=== PATIENT | male | born 1990 | race Caucasian/White ===

== ENCOUNTER 2024-11-10 19:26 | Observation (INO) ==
--- NOTE | 2024-11-10 20:04 | Emergency Department Note ---
Impression & Plan Abdominal pain, Leukocytosis, Intussusception, Chest pain, Episodic lightheadedness ED Provider Note NAME: RAJ ALBERTO Jr AGE: 34 SEX: M : 1990 ARRIVES VIA: Walk-In INFORMANT: Patient ED PROVIDER(S): Richard eLggett DO CHIEF COMPLAINT: Weakness HPI: Patient is a 34-year-old male who presents ER for multiple complaints. His notes that he was sent in here for admission and further evaluation. They have been seen at [facility] multiple times since August. He has had diffuse myalgias and arthralgias for the past 4 years. He has been worked up at [facility] and was initially syphilis positive and a confirmatory testing was negative per family. His Moisés-Arriola was positive. He has episodes where he is able to walk and all of a sudden becomes weak and will go to the ground. He has had brain or MRIs which were negative. He has lost 20 pounds over the past 2 months. He admits to persistent belly pain for the past 7 days. He also has chest pain which comes and goes with eating and standing up. Denies any dysuria, urgency, or frequency. Also admits to lightheadedness and dizziness intermittently. Does have lower back pain. Denies any IV drug use or any other drug use other than marijuana. ADDITIONAL HISTORY OBTAINED: Per HPI Chronic Medical/Social Conditions Affecting Care: Per HPI PAST MEDICAL HISTORY:See Below PAST SURGICAL HISTORY:See Below FAMILY HISTORY:See Below SOCIAL HISTORY:See Below HOME MEDICATIONS:See Below ALLERGIES:See Below VITALS:See Below PHYSICAL EXAMINATION: GENERAL: Sitting up in bed, alert, well appearing, well nourished, no distress, non-toxic EYE EXAM: normal conjunctiva. PERRL and EOM's intact. OROPHARYNX: no exudate, no erythema, lips, buccal mucosa, and tongue normal and mucous membranes are moist NECK: supple, no nuchal rigidity, no adenopathy, non-tender LUNGS: Clear to auscultation. Normal chest wall mechanics HEART: no murmurs, S1 normal and S2 normal ABDOMEN: abdomen soft, non-tender, normo-active bowel sounds, no masses, no rebound or guarding. BACK: Back is symmetrical on inspection and there is no deformity, no midline tenderness, no CVA tenderness. SKIN: no rashes and no bruising UPPER EXTREMITIES: upper extremities are grossly normal. LOWER EXTREMITIES: No pitting edema. NEURO EXAM: Normal sensorium, cranial nerves II-XII intact, normal speech, no weakness of arms, no weakness of legs. No drift. Finger to nose intact. Gross sensation intact. MEDICAL DECISION MAKING: Patient is a 34-year-old male who presents ER for multiple complaints. He was referred in for admission and possible MRI and LP. IV was established and blood work was obtained. Labs show mild leukocytosis of 12.5. No significant anemia. BMP along with LFTs bilirubin was unremarkable. Mag was normal. Troponin was negative with chest pain does not appear to be consistent with ACS. Lipase was mildly elevated at 170. CT does not show pancreatitis but did show intussusception. This was discussed with general surgery and they did evaluate him at bedside. 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 UA was clean. Syphilis antibody is is positive with the RPR and FTAABS pending. Babesiosis and anaplasmosis smears were ordered and negative. Lyme screening was positive and patient was updated in regards to this. The IgM and IgG did eventually come back and were negative. Remainder of tickborne studies are pending. Patient was covered with Rocephin. Patient was given IV fluids. He was discussed with general surgery and the hospitalist. He was admitted for further workup. Consults/Care Managements Discussions: Per [facility] Triage Nursing notes reviewed. Limited review of prior medical records performed Vital Signs: reviewed and remarkable for no significant abnormalities Differential diagnosis: Differential diagnoses includes but is not limited to gastritis, peptic ulcer disease, GERD, gallbladder disease, pancreatitis, small bowel obstruction, appendicitis, diverticulitis, hernia, urinary tract infection, torsion, [/ectopic (if female)], perforation, trauma, infectious. ER treatment provided: See below Diagnostics interpreted by me include EKG and cardiac monitoring as listed below: -Cardiac Monitoring: An order was placed for continuous cardiac monitoring. The monitor shows a rate of 90 with sinus rhythm. -ECG: Sinus rhythm rate of 72 Normal axis No PVCs QTc 396 -Laboratory studies:Interpreted by me as stated above in MDM and shown below. Imaging studies: Xrays: As interpreted by me: Portable AP upright 1 view the chest shows no focal Lutrate CTs show: none Procedures:none Critical Care: None Past Med/Surg History Problem List (Updated 11/11/24 @ 00:31 by Richard Leggett DO) Episodic lightheadedness (Acute) Chest pain (Acute) Intussusception (Acute) Leukocytosis (Acute) Abdominal pain (Acute) Social History Smoking Status: Current every day smoker Tobacco Type: Cigarettes Preferred Language: Cape Verdean Feels Safe at Home: Yes Allergies Allergies Allergy/AdvReac Type Severity Reaction Status Date / Time aripiprazole [From Abilify] AdvReac Severe Anxiety Verified 11/10/24 22:42 clonazepam [From Klonopin] AdvReac Severe Anxiety Verified 11/10/24 22:42 quetiapine [From Seroquel] AdvReac Severe Anxiety Verified 11/10/24 22:42 Home Meds Home Medications Medication Instructions Recorded Confirmed hydroxyzine HCl 10 mg tablet 10 mg PO Q6 PRN Anxiety 11/10/24 11/10/24 ibuprofen 200 mg tablet 400 mg PO Q6H PRN Fever Or Pain 11/10/24 11/10/24 methylprednisolone 4 mg tablets in 4 mg PO UD 11/10/24 11/10/24 a dose pack Results & Data (ED) Vital Signs Vital Signs - 24 hr 11/10/24 19:27 11/10/24 20:03 11/10/24 20:03 Temperature 36.7 C Temperature Source Temporal Artery Scan Pulse Rate 92 H Pulse Rate [Right Finger] 78 Pulse Rhythm Regular Pulse Strength Normal Respiratory Rate 18 18 Respiratory Effort / Characteristics Non-Labored Spontaneous Respiratory Depth Normal Normal Respiratory Pattern Regular Blood Pressure 120/81 Blood Pressure [Right Arm] 121/60 Blood Pressure Mean 94 Blood Pressure Mean [Right Arm] 80 Blood Pressure Position Sitting Pulse Oximetry 100 99 99 Oxygen Delivery Method Room Air Room Air Room Air Sepsis Recent Fever Within 48 Hours No Sepsis New/Unexplained Change in Mental Status No Sepsis Action Taken by Nursing No Action Required 11/10/24 20:06 11/10/24 21:04 11/10/24 21:11 Temperature Temperature Source Pulse Rate 76 56 L Pulse Rate [Right Finger] Pulse Rhythm Regular Pulse Strength Respiratory Rate 16 16 Respiratory Effort / Characteristics Respiratory Depth Normal Respiratory Pattern Blood Pressure Blood Pressure [Right Arm] 108/76 Blood Pressure Mean Blood Pressure Mean [Right Arm] 86 Blood Pressure Position Pulse Oximetry 99 98 Oxygen Delivery Method Room Air Room Air Sepsis Recent Fever Within 48 Hours Sepsis New/Unexplained Change in Mental Status Sepsis Action Taken by Nursing 11/10/24 22:35 Temperature Temperature Source Pulse Rate Pulse Rate [Right Finger] 53 L Pulse Rhythm Pulse Strength Respiratory Rate 16 Respiratory Effort / Characteristics Respiratory Depth Normal Respiratory Pattern Blood Pressure Blood Pressure [Right Arm] 110/72 Blood Pressure Mean Blood Pressure Mean [Right Arm] 84 Blood Pressure Position Pulse Oximetry 97 Oxygen Delivery Method Room Air Sepsis Recent Fever Within 48 Hours Sepsis New/Unexplained Change in Mental Status Sepsis Action Taken by Nursing Laboratory Data 11/10/24 20:05 11/10/24 20:05 Lab Results 11/10/24 11/10/24 Range/Units 20:05 20:35 WBC 12.51 H (4.8-10.8) K/ul RBC 4.72 (4.70-6.10) M/uL Hgb 14.4 (14.0-18.0) g/dl Hct 41.4 L (42.0-52.0) % MCV 87.7 (80.0-100.0) fL MCH 30.5 (25.0-34.0) pg MCHC 34.8 (32.0-36.0) g/dL RDW Std Deviation 41.8 (36.4-46.3) fL RDW Coeff of Soni 13.0 (11.5-14.5) % Plt Count 174 (130-400) K/uL MPV 11.5 (9.4-12.4) fL Immature Gran % (Auto) 0.5 % Neut % (Auto) 86.9 % Lymph % (Auto) 9.0 % Louisa % (Auto) 3.1 % Eos % (Auto) 0.1 % Baso % (Auto) 0.4 % Neut # (Auto) 10.88 H (1.40-6.50) K/uL Lymph # (Auto) 1.12 L (1.20-3.40) K/uL Louisa # (Auto) 0.39 (0.11-0.59) K/uL Eos # (Auto) 0.01 (0.00-0.50) K/uL Baso # (Auto) 0.05 (0.00-0.20) K/uL Immature Gran # (Auto) 0.06 (0.01-0.20) K/uL APTT 27 (21-31) Seconds PTT Ratio 1.0 Sodium 139 (136-145) mmol/L Potassium 4.2 (3.5-5.1) mmol/L Chloride 106 (98-107) mmol/L Carbon Dioxide 26 (21-32) mmol/L Anion Gap 7 (3-11) BUN 23 (6-23) mg/dl Creatinine 0.81 (0.6-1.4) mg/dl Est Cr Clr Drug Dosing 108.4 ml/min eGFR 117.92 BUN/Creatinine Ratio 28.4 H (10-20) Glucose 151 H (70-99(Fasting)) mg/dl Calcium 9.5 (8.6-10.3) mg/dl Magnesium 2.0 (1.7-2.4) mg/dl Total Bilirubin 0.3 (0.2-1.0) mg/dl AST 16 (13-39) U/L ALT 13 (7-52) U/L Alkaline Phosphatase 56 (34-104) U/L Troponin I High Sens 2.4 (0-20) pg/ml Total Protein 7.1 (6.0-8.3) gm/dl Albumin 4.4 (3.4-5.0) gm/dl Globulin 2.7 (2.5-4.0) gm/dl Albumin/Globulin Ratio 1.6 (0.9-2) Lipase 174 H (11-82) U/L TSH 0.338 (0.300-4.500) uIu/ml Urine Color Yellow Urine Appearance Clear (Clear) Urine pH 6.5 (4.5-7.5) Ur Specific [place] 1.021 (1.000-1.030) Urine Protein Negative (Negative) Urine Glucose (UA) Negative (Negative) Urine Ketones Negative (Negative) Urine Blood Negative (Negative) Urine Nitrite Negative (Negative) Urine Bilirubin Negative (Negative) Urine Urobilinogen Negative (Negative) Ur Leukocyte Esterase Negative (Negative) Urine Comment Treponema pallidum Ab Positive H (Negative) Anaplasma Smear See Comment Babesia Smear See Comment Lyme Disease Screen Positive H (Negative) Lyme Tier 2 IgG Confirm Negative (Negative) Lyme Tier 2 IgM Confirm Negative (Negative) Administered Medications Discontinued Medications Sodium Chloride (Nss) 1,000 mls @ 999 mls/hr IV .Q1H1M ONE Stop: 11/10/24 20:55 Last Infusion: 11/10/24 22:39 Dose: Infused Documented By: Admin: 11/10/24 20:09 Dose: 999 mls/hr Documented By: QUOC Ceftriaxone Sodium (Rocephin) 2,000 mg in 50 mls @ 100 mls/hr IV NOW STA Stop: 11/10/24 22:56 Last Infusion: 11/10/24 23:23 Dose: Infused Documented By: Admin: 11/10/24 22:44 Dose: 100 mls/hr Documented By: ANASTACIA Ioversol (Optiray 320 100ml) 93 ml IV ONCE ONE Stop: 11/10/24 20:52 Last Admin: 11/10/24 20:52 Dose: 93 ml Documented By: JESUSITA Ioversol (Optiray 320 125ml) 125 ml IV ONCE ONE Stop: 11/10/24 23:06 Last Admin: 11/10/24 23:06 Dose: 118 ml Documented By: ARTEMIO Imaging Data Radiologist's Impression: Abdomen/Pelvis CT 11/10/24 19:54 CR Exam(s): CT ABDOMEN + PELVIS With Contrast IV Amt: 93 cc opti 320 EXAM: CT Abdomen and Pelvis With Intravenous Contrast CLINICAL HISTORY: Reason for exam: abd pain. TECHNIQUE: Axial computed tomography images of the abdomen and pelvis with intravenous contrast. CTDI is 44.6 mGy and DLP is 1101.88 mGy-cm. Automated exposure control was utilized for the study. A dose lowering technique was utilized adhering to the principles of ALARA. CONTRAST: Patient received 93 cc opti 320 of IV contrast COMPARISON: No relevant prior studies available. FINDINGS: ABDOMEN: Liver: Unremarkable. Gallbladder and bile ducts: Unremarkable. Pancreas: Unremarkable. Spleen: Unremarkable. Adrenals: Unremarkable. Kidneys and ureters: Unremarkable. No obstructing stones. No hydronephrosis. Stomach and bowel: There is a small bowel-small bowel intussusception within the pelvis. No bowel obstruction. Most commonly this is incidental and self reduces. However can also be seen in the setting of enteritis or if there is a lead point. PELVIS: Appendix: No findings to suggest acute appendicitis. Bladder: Unremarkable. Reproductive: Unremarkable as visualized. ABDOMEN and PELVIS: Intraperitoneal space: Unremarkable. No free air. No significant fluid collection. Bones/joints: No acute fracture. Soft tissues: Unremarkable. Vasculature: Filling defects within the superior mesenteric veins (series 5 image 54). Indeterminate whether this represents flow related artifact or DVT. Lymph nodes: Unremarkable. IMPRESSION: 1. There is a small bowel-small bowel intussusception within the pelvis. No bowel obstruction. Most commonly this is incidental and self reduces. However can also be seen in the setting of enteritis or if there is a lead point. 2. Filling defects within the superior mesenteric veins (series 5 image 54). Indeterminate whether this represents flow related artifact or DVT. If the patient can have more contrast findings could be further evaluated with a repeat study and a delayed phase to evaluate for complete filling of these veins with contrast. Communications: Call Doctor Above results Electronically signed by: Brady Briseno MD 11/10/24 22:15 PM Chest X-Ray 11/10/24 19:54 Exam(s): XR CXR 1 VIEW EXAM: XR Chest, 1 View CLINICAL HISTORY: Reason for exam: Chest pain, nonspecific. TECHNIQUE: Frontal view of the chest. COMPARISON: None FINDINGS: Hardware: None. Lungs/pleura: Normal. No focal consolidation. No pleural effusion or pneumothorax. Heart/mediastinum: Normal. No cardiomegaly. Soft tissues: Unremarkable. Bones: No acute fracture. Upper abdomen: Normal. IMPRESSION: No acute disease identified. Electronically signed by: Nikole Garvey M.D. 11/10/24 21:[address] 11/10/24 19:54 Exam(s): CT HEAD Without Contrast EXAM: CT Head Without Intravenous Contrast CLINICAL HISTORY: Reason for exam: fall weakness. TECHNIQUE: Axial computed tomography images of the head/brain without intravenous contrast. CTDI is 6 35.51 mGy and DLP is 624.41 mGy-cm. Automated exposure control was utilized for the study. A dose lowering technique was utilized adhering to the principles of ALARA. COMPARISON: No relevant prior studies available. FINDINGS: Brain: No hemorrhage, extra-axial fluid collection, mass effect, or edema. Ventricles: Unremarkable. Bones/joints: Unremarkable. No fracture. Soft tissues: Unremarkable. Sinuses: No acute sinusitis. Mastoid air cells: Unremarkable as visualized. IMPRESSION: 1. No acute intracranial abnormality. Electronically signed by: Brady Briseno MD 11/10/24 22:[address] 11/10/24 19:54 Exam(s): CT L SPINE With Contrast IV Amt: 93 cc opti 320 EXAM: CT Lumbar Spine With Intravenous Contrast CLINICAL HISTORY: Reason for exam: lower back pain. TECHNIQUE: Axial computed tomography images of the lumbar spine with intravenous contrast. CTDI is 44.6 mGy and DLP is 1101.88 mGy-cm. Automated exposure control was utilized for the study. A dose lowering technique was utilized adhering to the principles of ALARA. CONTRAST: Patient received 93 cc opti 320 of IV contrast COMPARISON: No relevant prior studies available. FINDINGS: Vertebrae: No fracture or malalignment. Discs/spinal canal/neural foramina: Mild degenerative disc disease at L4-5. No canal stenosis. Severe right foraminal stenosis at this level. Soft tissues: Unremarkable. IMPRESSION: 1. No fracture or malalignment. 2. Degenerative spondylosis at L4-5. Severe right foraminal stenosis at this level. Electronically signed by: Brady Briseno MD 11/10/24 22:17 PM Discharge Plan Visit Data Chief Complaint: Weakness Stated Complaint: WEAKNESS ED Provider: Richard Leggett Discharge Problem: Abdominal pain, Leukocytosis, Intussusception, Chest pain, Episodic lightheadedness Condition: Fair Forms Stand Alone Forms: [employer]ers[employer] Prescriptions Prescriptions: No Action methylprednisolone 4 mg tablets,dose pack 4 mg PO UD hydroxyzine HCl 10 mg tablet 10 mg PO Q6 PRN (Reason: Anxiety) ibuprofen 200 mg Tablet 400 mg PO Q6H PRN (Reason: Fever Or Pain) Referrals Referrals: PCP,NO [Primary Care Provider] - Discharge Problem: Abdominal pain Qualifiers: Abdominal location: unspecified location Qualified Code(s): R10.9 - Unspecified abdominal pain Leukocytosis Qualifiers: Leukocytosis type: unspecified Qualified Code(s): D72.829 - Elevated white blood cell count, unspecified Chest pain Qualifiers: Chest pain type: unspecified Qualified Code(s): R07.9 - Chest pain, unspecified
[2024-11-10] MEDS: SODIUM CHLORIDE 0.9% 1,000 ML IV ONE (20:09)
[2024-11-10 20:23] LABS: Hematocrit (blood only) 41.4 % (42.0-52.0); Hemoglobin 14.4 g/dl (14.0-18.0); Immature Granulocytes # (auto) 0.06 K/uL (0.01-0.20); Immature Granulocytes % (auto) 0.5 %; Mean Corpuscular Hemoglobin 30.5 pg (25.0-34.0); Mean Corpuscular Volume 87.7 fL (80.0-100.0); Platelet Count 174 K/uL (130-400); RDW Standard Deviation 41.8 fL (36.4-46.3); Red Blood Count 4.72 M/uL (4.70-6.10); White Blood Count 12.51 K/ul (4.8-10.8)
[2024-11-10 20:40] LABS: Alanine Aminotransferase 13.0 U/L (7-52); Albumin Globulin Ratio 1.6 (0.9-2); Alkaline Phosphatase 56.0 U/L (34-104); Anion Gap 7.0 (3-11); Bilirubin,Total 0.3 mg/dl (0.2-1.0); Blood Urea Nitrogen 23.0 mg/dl (6-23); Calcium 9.5 mg/dl (8.6-10.3); Carbon Dioxide 26.0 mmol/L (21-32); Chloride 106.0 mmol/L (98-107); Creatinine Clr Calc Pharmacy 108.4 ml/min; Globulin 2.7 gm/dl (2.5-4.0); Glucose 151.0 mg/dl (70-99(Fasting)); Lipase 174.0 U/L (11-82); Potassium 4.2 mmol/L (3.5-5.1); Sodium 139.0 mmol/L (136-145); Total Protein 7.1 gm/dl (6.0-8.3)
[2024-11-10 20:50] LABS: Appearance Urine Clear (Clear); Glucose Urine UA Negative (Negative)
[2024-11-10] MEDS: OPTIRAY 320 100ml IV ONE (20:52)
--- NOTE | 2024-11-10 21:04 | XRay Report ---
Exam(s): XR CXR 1 VIEW EXAM: XR Chest, 1 View CLINICAL HISTORY: Reason for exam: Chest pain, nonspecific. TECHNIQUE: Frontal view of the chest. COMPARISON: None FINDINGS: Hardware: None. Lungs/pleura: Normal. No focal consolidation. No pleural effusion or pneumothorax. Heart/mediastinum: Normal. No cardiomegaly. Soft tissues: Unremarkable. Bones: No acute fracture. Upper abdomen: Normal. IMPRESSION: No acute disease identified. Electronically signed by: Nikole Garvey M.D. 11/10/24 21:03 PM
[2024-11-10 21:32] LABS: Lyme Screen Rflx Confirmation Positive (Negative)
--- NOTE | 2024-11-10 22:09 | CT Scan Report ---
Exam(s): CT HEAD Without Contrast EXAM: CT Head Without Intravenous Contrast CLINICAL HISTORY: Reason for exam: fall weakness. TECHNIQUE: Axial computed tomography images of the head/brain without intravenous contrast. CTDI is 6 35.51 mGy and DLP is 624.41 mGy-cm. Automated exposure control was utilized for the study. A dose lowering technique was utilized adhering to the principles of ALARA. COMPARISON: No relevant prior studies available. FINDINGS: Brain: No hemorrhage, extra-axial fluid collection, mass effect, or edema. Ventricles: Unremarkable. Bones/joints: Unremarkable. No fracture. Soft tissues: Unremarkable. Sinuses: No acute sinusitis. Mastoid air cells: Unremarkable as visualized. IMPRESSION: 1. No acute intracranial abnormality. Electronically signed by: Brady Briseno MD 11/10/24 22:08 PM
--- NOTE | 2024-11-10 22:16 | CT Scan Report ---
Exam(s): CT ABDOMEN + PELVIS With Contrast IV Amt: 93 cc opti 320 EXAM: CT Abdomen and Pelvis With Intravenous Contrast CLINICAL HISTORY: Reason for exam: abd pain. TECHNIQUE: Axial computed tomography images of the abdomen and pelvis with intravenous contrast. CTDI is 44.6 mGy and DLP is 1101.88 mGy-cm. Automated exposure control was utilized for the study. A dose lowering technique was utilized adhering to the principles of ALARA. CONTRAST: Patient received 93 cc opti 320 of IV contrast COMPARISON: No relevant prior studies available. FINDINGS: ABDOMEN: Liver: Unremarkable. Gallbladder and bile ducts: Unremarkable. Pancreas: Unremarkable. Spleen: Unremarkable. Adrenals: Unremarkable. Kidneys and ureters: Unremarkable. No obstructing stones. No hydronephrosis. Stomach and bowel: There is a small bowel-small bowel intussusception within the pelvis. No bowel obstruction. Most commonly this is incidental and self reduces. However can also be seen in the setting of enteritis or if there is a lead point. PELVIS: Appendix: No findings to suggest acute appendicitis. Bladder: Unremarkable. Reproductive: Unremarkable as visualized. ABDOMEN and PELVIS: Intraperitoneal space: Unremarkable. No free air. No significant fluid collection. Bones/joints: No acute fracture. Soft tissues: Unremarkable. Vasculature: Filling defects within the superior mesenteric veins (series 5 image 54). Indeterminate whether this represents flow related artifact or DVT. Lymph nodes: Unremarkable. IMPRESSION: 1. There is a small bowel-small bowel intussusception within the pelvis. No bowel obstruction. Most commonly this is incidental and self reduces. However can also be seen in the setting of enteritis or if there is a lead point. 2. Filling defects within the superior mesenteric veins (series 5 image 54). Indeterminate whether this represents flow related artifact or DVT. If the patient can have more contrast findings could be further evaluated with a repeat study and a delayed phase to evaluate for complete filling of these veins with contrast. Communications: Call Doctor Above results Electronically signed by: Brady Briseno MD 11/10/24 22:15 PM
--- NOTE | 2024-11-10 22:19 | CT Scan Report ---
Exam(s): CT L SPINE With Contrast IV Amt: 93 cc opti 320 EXAM: CT Lumbar Spine With Intravenous Contrast CLINICAL HISTORY: Reason for exam: lower back pain. TECHNIQUE: Axial computed tomography images of the lumbar spine with intravenous contrast. CTDI is 44.6 mGy and DLP is 1101.88 mGy-cm. Automated exposure control was utilized for the study. A dose lowering technique was utilized adhering to the principles of ALARA. CONTRAST: Patient received 93 cc opti 320 of IV contrast COMPARISON: No relevant prior studies available. FINDINGS: Vertebrae: No fracture or malalignment. Discs/spinal canal/neural foramina: Mild degenerative disc disease at L4-5. No canal stenosis. Severe right foraminal stenosis at this level. Soft tissues: Unremarkable. IMPRESSION: 1. No fracture or malalignment. 2. Degenerative spondylosis at L4-5. Severe right foraminal stenosis at this level. Electronically signed by: Brady Briseno MD 11/10/24 22:17 PM
[2024-11-10] MEDS: cefTRIAXone SODIUM 2,000 MG/50 ML BAG IV STA (22:44)
[2024-11-10 23:02] LABS: Lyme Ab IgG 2nd Tier Confirm Negative (Negative); Lyme Ab IgM 2nd Tier Confirm Negative (Negative)
[2024-11-10] MEDS: OPTIRAY 320 125ml IV ONE (23:06)
--- NOTE | 2024-11-10 23:41 | History & Physical Report ---
Date of Service November 10, 2024 History of Present Illness Primary Care Provider: NO PCP Allergies Allergy/AdvReac Type Severity Reaction Status Date / Time aripiprazole [From Abilify] AdvReac Severe Anxiety Verified 11/10/24 22:42 clonazepam [From Klonopin] AdvReac Severe Anxiety Verified 11/10/24 22:42 quetiapine [From Seroquel] AdvReac Severe Anxiety Verified 11/10/24 22:42 Home Medications Medication Instructions Recorded Confirmed Type hydroxyzine HCl 10 mg tablet 10 mg PO Q6 PRN Anxiety 11/10/24 11/10/24 History ibuprofen 200 mg tablet 400 mg PO Q6H PRN Fever Or Pain 11/10/24 11/10/24 History methylprednisolone 4 mg tablets in 4 mg PO UD 11/10/24 11/10/24 History a dose pack Past Med/Surg History Problem List Social History Smoking Status: Current every day smoker Tobacco Type: Cigarettes Preferred Language: Niuean Feels Safe at Home: Yes Results & Data Results & Data Vital Signs (Past 12 Hours) Vital Signs Temp Pulse Pulse Resp BP BP Pulse Ox 11/10/24 22:35 53 L 16 110/72 97 11/10/24 21:11 56 L 11/10/24 21:04 16 108/76 98 11/10/24 20:06 76 16 99 11/10/24 20:03 78 18 121/60 99 11/10/24 20:03 99 11/10/24 19:27 36.7 C 92 H 18 120/81 100 O2 Del Method 11/10/24 22:35 Room Air 11/10/24 21:11 11/10/24 21:04 Room Air 11/10/24 20:06 Room Air 11/10/24 20:03 Room Air 11/10/24 20:03 Room Air 11/10/24 19:27 Room Air Laboratory Results Laboratory Results WBC 12.51 K/ul (4.8-10.8) H 11/10/24 20:05 RBC 4.72 M/uL (4.70-6.10) 11/10/24 20:05 Hgb 14.4 g/dl (14.0-18.0) 11/10/24 20:05 Hct 41.4 % (42.0-52.0) L 11/10/24 20:05 MCV 87.7 fL (80.0-100.0) 11/10/24 20:05 MCH 30.5 pg (25.0-34.0) 11/10/24 20:05 MCHC 34.8 g/dL (32.0-36.0) 11/10/24 20:05 RDW Std Deviation 41.8 fL (36.4-46.3) 11/10/24 20:05 RDW Coeff of Soni 13.0 % (11.5-14.5) 11/10/24 20:05 Plt Count 174 K/uL (130-400) 11/10/24 20:05 MPV 11.5 fL (9.4-12.4) 11/10/24 20:05 Immature Gran % (Auto) 0.5 % 11/10/24 20:05 Neut % (Auto) 86.9 % 11/10/24 20:05 Lymph % (Auto) 9.0 % 11/10/24 20:05 [place] % (Auto) 3.1 % 11/10/24 20:05 Eos % (Auto) 0.1 % 11/10/24 20:05 Baso % (Auto) 0.4 % 11/10/24 20:05 Neut # (Auto) 10.88 K/uL (1.40-6.50) H 11/10/24 20:05 Lymph # (Auto) 1.12 K/uL (1.20-3.40) L 11/10/24 20:05 [place] # (Auto) 0.39 K/uL (0.11-0.59) 11/10/24 20:05 Eos # (Auto) 0.01 K/uL (0.00-0.50) 11/10/24 20:05 Baso # (Auto) 0.05 K/uL (0.00-0.20) 11/10/24 20:05 Immature Gran # (Auto) 0.06 K/uL (0.01-0.20) 11/10/24 20:05 Sodium 139 mmol/L (136-145) 11/10/24 20:05 Potassium 4.2 mmol/L (3.5-5.1) 11/10/24 20:05 Chloride 106 mmol/L (98-107) 11/10/24 20:05 Carbon Dioxide 26 mmol/L (21-32) 11/10/24 20:05 Anion Gap 7 (3-11) 11/10/24 20:05 BUN 23 mg/dl (6-23) 11/10/24 20:05 Creatinine 0.81 mg/dl (0.6-1.4) 11/10/24 20:05 Est Cr Clr Drug Dosing 108.4 ml/min 11/10/24 20:05 eGFR 117.92 11/10/24 20:05 BUN/Creatinine Ratio 28.4 (10-20) H 11/10/24 20:05 Glucose 151 mg/dl (70-99(Fasting)) H 11/10/24 20:05 Calcium 9.5 mg/dl (8.6-10.3) 11/10/24 20:05 Total Bilirubin 0.3 mg/dl (0.2-1.0) 11/10/24 20:05 AST 16 U/L (13-39) 11/10/24 20:05 ALT 13 U/L (7-52) 11/10/24 20:05 Alkaline Phosphatase 56 U/L (34-104) 11/10/24 20:05 Troponin I High Sens 2.4 pg/ml (0-20) 11/10/24 20:05 Total Protein 7.1 gm/dl (6.0-8.3) 11/10/24 20:05 Albumin 4.4 gm/dl (3.4-5.0) 11/10/24 20:05 Globulin 2.7 gm/dl (2.5-4.0) 11/10/24 20:05 Albumin/Globulin Ratio 1.6 (0.9-2) 11/10/24 20:05 Lipase 174 U/L (11-82) H 11/10/24 20:05 Urine Color Yellow 11/10/24 20:35 Urine Appearance Clear (Clear) 11/10/24: Urine pH 6.5 (4.5-7.5) 11/10/24: Ur Specific [place] 1.021 (1.000-1.030) 11/10/24 20:35 Urine Protein Negative (Negative) 11/10/24: Urine Glucose (UA) Negative (Negative) 11/10/24: Urine Ketones Negative (Negative) 11/10/24 20:35 Urine Blood Negative (Negative) 11/10/24 20:35 Urine Nitrite Negative (Negative) 11/10/24 20:35 Urine Bilirubin Negative (Negative) 11/10/24 20:35 Urine Urobilinogen Negative (Negative) 11/10/24 20:35 Ur Leukocyte Esterase Negative (Negative) 11/10/24 20:35 Urine Comment 11/10/24 20:35 Treponema pallidum Ab Positive (Negative) H 11/10/24 20:05 Anaplasma Smear See Comment 11/10/24 20:05 Babesia Smear See Comment 11/10/24 20:05 Lyme Disease Screen Positive (Negative) H 11/10/24 20:05 Lyme Tier 2 IgG Confirm Negative (Negative) 11/10/24 20:05 Lyme Tier 2 IgM Confirm Negative (Negative) 11/10/24 20:05 Impressions Abdomen/Pelvis CT 11/10/24 19:54 CR Exam(s): CT ABDOMEN + PELVIS With Contrast IV Amt: 93 cc opti 320 EXAM: CT Abdomen and Pelvis With Intravenous Contrast CLINICAL HISTORY: Reason for exam: abd pain. TECHNIQUE: Axial computed tomography images of the abdomen and pelvis with intravenous contrast. CTDI is 44.6 mGy and DLP is 1101.88 mGy-cm. Automated exposure control was utilized for the study. A dose lowering technique was utilized adhering to the principles of ALARA. CONTRAST: Patient received 93 cc opti 320 of IV contrast COMPARISON: No relevant prior studies available. FINDINGS: ABDOMEN: Liver: Unremarkable. Gallbladder and bile ducts: Unremarkable. Pancreas: Unremarkable. Spleen: Unremarkable. Adrenals: Unremarkable. Kidneys and ureters: Unremarkable. No obstructing stones. No hydronephrosis. Stomach and bowel: There is a small bowel-small bowel intussusception within the pelvis. No bowel obstruction. Most commonly this is incidental and self reduces. However can also be seen in the setting of enteritis or if there is a lead point. PELVIS: Appendix: No findings to suggest acute appendicitis. Bladder: Unremarkable. Reproductive: Unremarkable as visualized. ABDOMEN and PELVIS: Intraperitoneal space: Unremarkable. No free air. No significant fluid collection. Bones/joints: No acute fracture. Soft tissues: Unremarkable. Vasculature: Filling defects within the superior mesenteric veins (series 5 image 54). Indeterminate whether this represents flow related artifact or DVT. Lymph nodes: Unremarkable. IMPRESSION: 1. There is a small bowel-small bowel intussusception within the pelvis. No bowel obstruction. Most commonly this is incidental and self reduces. However can also be seen in the setting of enteritis or if there is a lead point. 2. Filling defects within the superior mesenteric veins (series 5 image 54). Indeterminate whether this represents flow related artifact or DVT. If the patient can have more contrast findings could be further evaluated with a repeat study and a delayed phase to evaluate for complete filling of these veins with contrast. Communications: Call Doctor Above results Electronically signed by: Brady Briseno MD 11/10/24 22:15 PM Chest X-Ray 11/10/24 19:54 Exam(s): XR CXR 1 VIEW EXAM: XR Chest, 1 View CLINICAL HISTORY: Reason for exam: Chest pain, nonspecific. TECHNIQUE: Frontal view of the chest. COMPARISON: None FINDINGS: Hardware: None. Lungs/pleura: Normal. No focal consolidation. No pleural effusion or pneumothorax. Heart/mediastinum: Normal. No cardiomegaly. Soft tissues: Unremarkable. Bones: No acute fracture. Upper abdomen: Normal. IMPRESSION: No acute disease identified. Electronically signed by: Nikole Garvey M.D. 11/10/24 21:[address] 11/10/24 19:54 Exam(s): CT HEAD Without Contrast EXAM: CT Head Without Intravenous Contrast CLINICAL HISTORY: Reason for exam: fall weakness. TECHNIQUE: Axial computed tomography images of the head/brain without intravenous contrast. CTDI is 6 35.51 mGy and DLP is 624.41 mGy-cm. Automated exposure control was utilized for the study. A dose lowering technique was utilized adhering to the principles of ALARA. COMPARISON: No relevant prior studies available. FINDINGS: Brain: No hemorrhage, extra-axial fluid collection, mass effect, or edema. Ventricles: Unremarkable. Bones/joints: Unremarkable. No fracture. Soft tissues: Unremarkable. Sinuses: No acute sinusitis. Mastoid air cells: Unremarkable as visualized. IMPRESSION: 1. No acute intracranial abnormality. Electronically signed by: Brady Briseno MD 11/10/24 22:[address] 11/10/24 19:54 Exam(s): CT L SPINE With Contrast IV Amt: 93 cc opti 320 EXAM: CT Lumbar Spine With Intravenous Contrast CLINICAL HISTORY: Reason for exam: lower back pain. TECHNIQUE: Axial computed tomography images of the lumbar spine with intravenous contrast. CTDI is 44.6 mGy and DLP is 1101.88 mGy-cm. Automated exposure control was utilized for the study. A dose lowering technique was utilized adhering to the principles of ALARA. CONTRAST: Patient received 93 cc opti 320 of IV contrast COMPARISON: No relevant prior studies available. FINDINGS: Vertebrae: No fracture or malalignment. Discs/spinal canal/neural foramina: Mild degenerative disc disease at L4-5. No canal stenosis. Severe right foraminal stenosis at this level. Soft tissues: Unremarkable. IMPRESSION: 1. No fracture or malalignment. 2. Degenerative spondylosis at L4-5. Severe right foraminal stenosis at this level. Electronically signed by: Brady Briseno MD 11/10/24 22:17 PM
[2024-11-10 23:47] LABS: Partial Thromboplastin Time 27 Seconds (21-31)
[2024-11-10 23:48] LABS: Magnesium 2.0 mg/dl (1.7-2.4)
[2024-11-11 00:03] LABS: Thyroid Stimulating Hormone 0.338 uIu/ml (0.300-4.500)
--- NOTE | 2024-11-11 00:53 | History & Physical Report ---
Date of Service November 11, 2024 Assessment & Plan (1) SOB (shortness of breath): Plan: Assessment and plan below following discussion of case with ED provider and reviewing patient history/pertinent normal/abnormal diagnostic test results. Shortness of breath Rule out PE Bowel intussusception on imaging Possible autoimmune disease, patient following with [facility] (Dr. Min) Worsening headache symptoms rule out brain tumor History false positive syphilis test Past history Lyme disease status post Rx, negative IgG and IgM on today's blood work Steroid-induced hyperglycemia ro DM past tobacco abuse Admit to med/tele Check D-dimer CT chest angio study to rule out PE if D-dimer abnormal (Will need IV dye washout period following preliminary studies done at the ER.) General Surgery consult re: bowel intussusception (Patient already seen by provider at the ER.) N.p.o. 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 Check hemoglobin A1c DVT prophylaxis. Edifilmnox subcu Full code Text document was generated using [employer] voice recognition software. It may contain grammatical or spelling errors. Kindly contact undersigned for clarification of any documentation item in question. History of Present Illness Chief Complaint: Abdominal pain, chest pain, worsening headaches, achiness Primary Care Provider: NO PCP History obtained from patient, family, and records. Medical history significant for anxiety disorder, past tobacco abuse. Patient has not been well the last 4 months. Diffuse achiness. Achy headache and back pain symptoms. Sensation of something pushing down on his shoulders. No facial or focal extremity weakness. Worsening symptoms the last couple of months associated with unquantified weight loss. Patient denies genital/groin lesions. About 20 [place] ER visits for symptoms. Mild improvement with separate steroid courses. Possible autoimmune disease with abnormal JUDY as per initial [facility] [employer] last week. History of tick bite years ago status post doxycycline Rx. History false positive syphilis test from 1 recent ER visit as per patient, likely secondary to autoimmune disease. 2 days ago, patient noted belly pain going to the chest associated with SOB. Worsening headache last night. Some nausea, no emesis. No cough symptoms. Good BM. Patient directed to ER for evaluation. IV ceftriaxone administered at the ER. 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 Allergies Allergy/AdvReac Type Severity Reaction Status Date / Time aripiprazole [From Abilify] AdvReac Severe Anxiety Verified 11/10/24 22:42 clonazepam [From Klonopin] AdvReac Severe Anxiety Verified 11/10/24 22:42 quetiapine [From Seroquel] AdvReac Severe Anxiety Verified 11/10/24 22:42 Home Medications Medication Instructions Recorded Confirmed Type hydroxyzine HCl 10 mg tablet 10 mg PO Q6 PRN Anxiety 11/10/24 11/10/24 History ibuprofen 200 mg tablet 400 mg PO Q6H PRN Fever Or Pain 11/10/24 11/10/24 History methylprednisolone 4 mg tablets in 4 mg PO UD 11/10/24 11/10/24 History a dose pack Past Med/Surg History Problem List (Updated 11/11/24 @ 09:41 by Daniel Agudelo MD) SOB (shortness of breath) Episodic lightheadedness (Acute) Chest pain (Acute) Intussusception (Acute) Leukocytosis (Acute) Abdominal pain (Acute) Social History Smoking Status: Current every day smoker Tobacco Type: Cigarettes Hx Alcohol Use: Yes Hx Substance Use: No Preferred Language: Thai Communication Ability: Effective Roll Coverer Required: No Beliefs That Will Affect Care: None Current Living Situation: Spouse Feels Safe at Home: Yes Assistive Devices: None Review of Systems Review of Systems: As per HPI, all other systems reviewed and negative Physical Exam Physical Exam: GENERAL: Comfortable, slightly anxious, underweight, no respiratory distress SKIN: Normal color, warm HEENT: bespectacled, pink palpebral conjunctivae, no ptosis, moist buccal mucosa NECK : Supple, no tenderness CHEST : CTA, no tenderness HEART : RRR, no obvious murmurs ABDOMEN: Some distention, minimal central abdominal tenderness EXTREMITIES : No LE swelling/tenderness, palpable pulses, no other conspicuous deformities noted NEUROLOGIC : Coherent, no facial asymmetry, no other gross focality Results & Data Results & Data Vital Signs (Past 12 Hours) Vital Signs Temp Pulse Pulse Resp BP BP Pulse Ox 11/10/24 22:35 53 L 16 110/72 97 11/10/24 21:11 56 L 11/10/24 21:04 16 108/76 98 11/10/24 20:06 76 16 99 11/10/24 20:03 78 18 121/60 99 11/10/24 20:03 99 11/10/24 19:27 36.7 C 92 H 18 120/81 100 O2 Del Method 11/10/24 22:35 Room Air 11/10/24 21:11 11/10/24 21:04 Room Air 11/10/24 20:06 Room Air 11/10/24 20:03 Room Air 11/10/24 20:03 Room Air 11/10/24 19:27 Room Air Laboratory Results Laboratory Results WBC 12.51 K/ul (4.8-10.8) H 11/10/24 20:05 RBC 4.72 M/uL (4.70-6.10) 11/10/24 20:05 Hgb 14.4 g/dl (14.0-18.0) 11/10/24 20:05 Hct 41.4 % (42.0-52.0) L 11/10/24 20:05 MCV 87.7 fL (80.0-100.0) 11/10/24 20:05 MCH 30.5 pg (25.0-34.0) 11/10/24 20:05 MCHC 34.8 g/dL (32.0-36.0) 11/10/24 20:05 RDW Std Deviation 41.8 fL (36.4-46.3) 11/10/24 20:05 RDW Coeff of Soni 13.0 % (11.5-14.5) 11/10/24 20:05 Plt Count 174 K/uL (130-400) 11/10/24 20:05 MPV 11.5 fL (9.4-12.4) 11/10/24 20:05 Immature Gran % (Auto) 0.5 % 11/10/24 20:05 Neut % (Auto) 86.9 % 11/10/24 20:05 Lymph % (Auto) 9.0 % 11/10/24 20:05 [place] % (Auto) 3.1 % 11/10/24 20:05 Eos % (Auto) 0.1 % 11/10/24 20:05 Baso % (Auto) 0.4 % 11/10/24 20:05 Neut # (Auto) 10.88 K/uL (1.40-6.50) H 11/10/24 20:05 Lymph # (Auto) 1.12 K/uL (1.20-3.40) L 11/10/24 20:05 [place] # (Auto) 0.39 K/uL (0.11-0.59) 11/10/24 20:05 Eos # (Auto) 0.01 K/uL (0.00-0.50) 11/10/24 20:05 Baso # (Auto) 0.05 K/uL (0.00-0.20) 11/10/24 20:05 Immature Gran # (Auto) 0.06 K/uL (0.01-0.20) 11/10/24 20:05 APTT 27 Seconds (21-31) 11/10/24 20:05 PTT Ratio 1.0 11/10/24 20:05 Sodium 139 mmol/L (136-145) 11/10/24 20:05 Potassium 4.2 mmol/L (3.5-5.1) 11/10/24 20:05 Chloride 106 mmol/L (98-107) 11/10/24 20:05 Carbon Dioxide 26 mmol/L (21-32) 11/10/24 20:05 Anion Gap 7 (3-11) 11/10/24 20:05 BUN 23 mg/dl (6-23) 11/10/24 20:05 Creatinine 0.81 mg/dl (0.6-1.4) 11/10/24 20:05 Est Cr Clr Drug Dosing 108.4 ml/min 11/10/24 20:05 eGFR 117.92 11/10/24 20:05 BUN/Creatinine Ratio 28.4 (10-20) H 11/10/24 20:05 Glucose 151 mg/dl (70-99(Fasting)) H 11/10/24 20:05 Calcium 9.5 mg/dl (8.6-10.3) 11/10/24 20:05 Magnesium 2.0 mg/dl (1.7-2.4) 11/10/24 20:05 Total Bilirubin 0.3 mg/dl (0.2-1.0) 11/10/24 20:05 AST 16 U/L (13-39) 11/10/24 20:05 ALT 13 U/L (7-52) 11/10/24 20:05 Alkaline Phosphatase 56 U/L (34-104) 11/10/24 20:05 Troponin I High Sens 2.4 pg/ml (0-20) 11/10/24 20:05 Total Protein 7.1 gm/dl (6.0-8.3) 11/10/24 20:05 Albumin 4.4 gm/dl (3.4-5.0) 11/10/24 20:05 Globulin 2.7 gm/dl (2.5-4.0) 11/10/24 20:05 Albumin/Globulin Ratio 1.6 (0.9-2) 11/10/24 20:05 Lipase 174 U/L (11-82) H 11/10/24 20:05 TSH 0.338 uIu/ml (0.300-4.500) 11/10/24 20:05 Urine Color Yellow 11/10/24 20:35 Urine Appearance Clear (Clear) 11/10/24 20:35 Urine pH 6.5 (4.5-7.5) 11/10/24 20:35 Ur Specific [place] 1.021 (1.000-1.030) 11/10/24 20:35 Urine Protein Negative (Negative) 11/10/24 20:35 Urine Glucose (UA) Negative (Negative) 11/10/24 20:35 Urine Ketones Negative (Negative) 11/10/24 20:35 Urine Blood Negative (Negative) 11/10/24 20:35 Urine Nitrite Negative (Negative) 11/10/24 20:35 Urine Bilirubin Negative (Negative) 11/10/24 20:35 Urine Urobilinogen Negative (Negative) 11/10/24 20:35 Ur Leukocyte Esterase Negative (Negative) 11/10/24 20:35 Urine Comment 11/10/24 20:35 Treponema pallidum Ab Positive (Negative) H 11/10/24 20:05 Anaplasma Smear See Comment 11/10/24 20:05 Babesia Smear See Comment 11/10/24 20:05 Lyme Disease Screen Positive (Negative) H 11/10/24 20:05 Lyme Tier 2 IgG Confirm Negative (Negative) 11/10/24 20:05 Lyme Tier 2 IgM Confirm Negative (Negative) 11/10/24 20:05 Impressions Abdomen/Pelvis CT 11/10/24 19:54 CR Exam(s): CT ABDOMEN + PELVIS With Contrast IV Amt: 93 cc opti 320 EXAM: CT Abdomen and Pelvis With Intravenous Contrast CLINICAL HISTORY: Reason for exam: abd pain. TECHNIQUE: Axial computed tomography images of the abdomen and pelvis with intravenous contrast. CTDI is 44.6 mGy and DLP is 1101.88 mGy-cm. Automated exposure control was utilized for the study. A dose lowering technique was utilized adhering to the principles of ALARA. CONTRAST: Patient received 93 cc opti 320 of IV contrast COMPARISON: No relevant prior studies available. FINDINGS: ABDOMEN: Liver: Unremarkable. Gallbladder and bile ducts: Unremarkable. Pancreas: Unremarkable. Spleen: Unremarkable. Adrenals: Unremarkable. Kidneys and ureters: Unremarkable. No obstructing stones. No hydronephrosis. Stomach and bowel: There is a small bowel-small bowel intussusception within the pelvis. No bowel obstruction. Most commonly this is incidental and self reduces. However can also be seen in the setting of enteritis or if there is a lead point. PELVIS: Appendix: No findings to suggest acute appendicitis. Bladder: Unremarkable. Reproductive: Unremarkable as visualized. ABDOMEN and PELVIS: Intraperitoneal space: Unremarkable. No free air. No significant fluid collection. Bones/joints: No acute fracture. Soft tissues: Unremarkable. Vasculature: Filling defects within the superior mesenteric veins (series 5 image 54). Indeterminate whether this represents flow related artifact or DVT. Lymph nodes: Unremarkable. IMPRESSION: 1. There is a small bowel-small bowel intussusception within the pelvis. No bowel obstruction. Most commonly this is incidental and self reduces. However can also be seen in the setting of enteritis or if there is a lead point. 2. Filling defects within the superior mesenteric veins (series 5 image 54). Indeterminate whether this represents flow related artifact or DVT. If the patient can have more contrast findings could be further evaluated with a repeat study and a delayed phase to evaluate for complete filling of these veins with contrast. Communications: Call Doctor Above results Electronically signed by: Brady Briseno MD 11/10/24 22:15 PM Chest X-Ray 11/10/24 19:54 Exam(s): XR CXR 1 VIEW EXAM: XR Chest, 1 View CLINICAL HISTORY: Reason for exam: Chest pain, nonspecific. TECHNIQUE: Frontal view of the chest. COMPARISON: None FINDINGS: Hardware: None. Lungs/pleura: Normal. No focal consolidation. No pleural effusion or pneumothorax. Heart/mediastinum: Normal. No cardiomegaly. Soft tissues: Unremarkable. Bones: No acute fracture. Upper abdomen: Normal. IMPRESSION: No acute disease identified. Electronically signed by: Nikole Garvey M.D. 11/10/24 21:[address] 11/10/24 19:54 Exam(s): CT HEAD Without Contrast EXAM: CT Head Without Intravenous Contrast CLINICAL HISTORY: Reason for exam: fall weakness. TECHNIQUE: Axial computed tomography images of the head/brain without intravenous contrast. CTDI is 6 35.51 mGy and DLP is 624.41 mGy-cm. Automated exposure control was utilized for the study. A dose lowering technique was utilized adhering to the principles of ALARA. COMPARISON: No relevant prior studies available. FINDINGS: Brain: No hemorrhage, extra-axial fluid collection, mass effect, or edema. Ventricles: Unremarkable. Bones/joints: Unremarkable. No fracture. Soft tissues: Unremarkable. Sinuses: No acute sinusitis. Mastoid air cells: Unremarkable as visualized. IMPRESSION: 1. No acute intracranial abnormality. Electronically signed by: Brady Briseno MD 11/10/24 22:[address] 11/10/24 19:54 Exam(s): CT L SPINE With Contrast IV Amt: 93 cc opti 320 EXAM: CT Lumbar Spine With Intravenous Contrast CLINICAL HISTORY: Reason for exam: lower back pain. TECHNIQUE: Axial computed tomography images of the lumbar spine with intravenous contrast. CTDI is 44.6 mGy and DLP is 1101.88 mGy-cm. Automated exposure control was utilized for the study. A dose lowering technique was utilized adhering to the principles of ALARA. CONTRAST: Patient received 93 cc opti 320 of IV contrast COMPARISON: No relevant prior studies available. FINDINGS: Vertebrae: No fracture or malalignment. Discs/spinal canal/neural foramina: Mild degenerative disc disease at L4-5. No canal stenosis. Severe right foraminal stenosis at this level. Soft tissues: Unremarkable. IMPRESSION: 1. No fracture or malalignment. 2. Degenerative spondylosis at L4-5. Severe right foraminal stenosis at this level. Electronically signed by: Brady Briseno MD 11/10/24 22:17 PM Diagnostic Findings EKG as per my interpretation :Rate 70, NSR, normal axis, LVH, incomplete RBBB, no ischemia
--- NOTE | 2024-11-11 01:09 | Surgery Consultation ---
Date of Consultation November 11, 2024 Assessment & Plan (1) Abdominal pain: Patient being admitted to the medical service for multiple complaints including diffuse myalgias, arthralgias, and abdominal pain. Workup in the emergency department did reveal a mild leukocytosis of 12.5, syphilis antibody was positive along with positive Lyme screening. Currently remainder of tickborne studies are pending. CT imaging was also obtained and was concerning for small bowel to small bowel intussusception along with possible superior mesenteric vein thrombus. Delayed venous phase CT currently pending at this time. General surgery was consulted due to findings of possible intussusception. The patient was seen and evaluated early this morning in the emergency department. Patient resting comfortably in bed, vital signs stable, and is nontoxic- appearing. On exam patient does have some mild tenderness over his lower abdominal region, however there are no signs of acute abdomen that would warrant emergent surgical intervention. For now we will treat conservatively, keep n.p.o and IV hydration. Surgery will continue to follow along closely and provide further recommendations as patient's hospital course unfolds. Patient seen. He really is not having any GI symptoms. He was having some epigastric discomfort/acid reflux type symptoms but these are relatively mild. No evidence of active intussusception and no history of lower abdominal pain or nausea vomiting. I believe this is most likely a red mary. I did give him signs and symptoms to watch for and to notify me if he gets any of these in the future. For now we will sign off. Please call if any questions History of Present Illness Reason for Consultation: small bowel intussusception History of Present Illness The patient is a 34-year-old male presented to the emergency department for multiple complaints including diffuse myalgias, arthralgias, and abdominal pain. To note, the patient has been seen at [facility] multiple times over the past few months for similar complaints however has not gotten a clear answer as to what's causing his symptoms. Patient's who is at bedside states that in [place] he initially was syphilis positive and Moisés-Arriola was positive, however he states that he was seen by rheumatology and additional testing was found to be negative. Patient also tested positive for Lyme disease. Patient states that he becomes so weak at times that he is unable to walk and will fall to the ground. He has had a brain MRI which was found to be negative. He states that he has lost roughly 20 pounds over the last few months and has had persistent abdominal pain for the last week or so. His also states that one CT that was done in [place] did show pancreatitis however this had also resolved. The patient was ultimately worked up in the emergency department and general surgery was consulted for CT findings concerning for small bowel to small bowel intussusception. The patient was seen and evaluated early this morning at bedside in the emergency department. He is resting comfortably in bed, vital signs stable, and is nontoxic-appearing. I discussed the CT findings with the patient he states that he believes a previous CT scan had also shown this in the past, however he cannot be sure. The patient states that his abdominal pain is diffuse at this time but denies any recent nausea or vomiting. He denies any blood present in his bowel movements and states his last bowel movement was this morning. Lab results revealed a mildly elevated WBC at 12.5 and Syphilis antibody done here was found to be positive along with a positive Lyme screening. Allergies Allergy/AdvReac Type Severity Reaction Status Date / Time aripiprazole [From Abilify] AdvReac Severe Anxiety Verified 11/10/24 22:42 clonazepam [From Klonopin] AdvReac Severe Anxiety Verified 11/10/24 22:42 quetiapine [From Seroquel] AdvReac Severe Anxiety Verified 11/10/24 22:42 Home Medications Medication Instructions Recorded Confirmed Type hydroxyzine HCl 10 mg tablet 10 mg PO Q6 PRN Anxiety 11/10/24 11/10/24 History ibuprofen 200 mg tablet 400 mg PO Q6H PRN Fever Or Pain 11/10/24 11/10/24 History methylprednisolone 4 mg tablets in 4 mg PO UD 11/10/24 11/10/24 History a dose pack Patient History Social History Smoking Status: Current every day smoker Tobacco Type: Cigarettes Hx Alcohol Use: Yes Hx Substance Use: No Preferred Language: Bel[place]an Communication Ability: Effective Yarn Packer Required: No Beliefs That Will Affect Care: None Current Living Situation: Spouse Feels Safe at Home: Yes Assistive Devices: None Review of Systems Constitutional: + fatigue, + weakness and + weight loss Respiratory: no hemoptysis and no wheezing Cardiovascular: no palpitations and no syncope Gastrointestinal: + abdominal pain; no change in bowel hab its Genitourinary: no difficulty urinating or no hematuria Physical Exam Constitutional: WD/WN, vitals as above Respiratory: normal respiratory effort, lungs clear to auscultation Cardiovascular: Rate/Rhythm: regular rate Gastrointestinal (Abdomen): Abdomen soft, nondistended, mild TTP in lower abdomen without any rebound, guarding or signs of peritonitis Skin: no rashes, warm and dry Results & Data Vital Signs (Past 12 Hours) Vital Signs Temp Pulse Pulse Resp BP BP Pulse Ox 11/10/24 22:35 53 L 16 110/72 97 11/10/24 21:11 56 L 11/10/24 21:04 16 108/76 98 11/10/24 20:06 76 16 99 11/10/24 20:03 78 18 121/60 99 11/10/24 20:03 99 11/10/24 19:27 36.7 C 92 H 18 120/81 100 O2 Del Method 11/10/24 22:35 Room Air 11/10/24 21:11 11/10/24 21:04 Room Air 11/10/24 20:06 Room Air 11/10/24 20:03 Room Air 11/10/24 20:03 Room Air 11/10/24 19:27 Room Air Diagnostic Findings Exam(s): CT ABDOMEN + PELVIS With Contrast IV Amt: 93 cc opti 320 EXAM: CT Abdomen and Pelvis With Intravenous Contrast CLINICAL HISTORY: Reason for exam: abd pain. TECHNIQUE: Axial computed tomography images of the abdomen and pelvis with intravenous contrast. CTDI is 44.6 mGy and DLP is 1101.88 mGy-cm. Automated exposure control was utilized for the study. A dose lowering technique was utilized adhering to the principles of ALARA. CONTRAST: Patient received 93 cc opti 320 of IV contrast COMPARISON: No relevant prior studies available. FINDINGS: ABDOMEN: Liver: Unremarkable. Gallbladder and bile ducts: Unremarkable. Pancreas: Unremarkable. Spleen: Unremarkable. Adrenals: Unremarkable. Kidneys and ureters: Unremarkable. No obstructing stones. No hydronephrosis. Stomach and bowel: There is a small bowel-small bowel intussusception within the pelvis. No bowel obstruction. Most commonly this is incidental and self reduces. However can also be seen in the setting of enteritis or if there is a lead point. PELVIS: Appendix: No findings to suggest acute appendicitis. Bladder: Unremarkable. Reproductive: Unremarkable as visualized. ABDOMEN and PELVIS: Intraperitoneal space: Unremarkable. No free air. No significant fluid collection. Bones/joints: No acute fracture. Soft tissues: Unremarkable. Vasculature: Filling defects within the superior mesenteric veins (series 5 image 54). Indeterminate whether this represents flow related artifact or DVT. Lymph nodes: Unremarkable. IMPRESSION: 1. There is a small bowel-small bowel intussusception within the pelvis. No bowel obstruction. Most commonly this is incidental and self reduces. However can also be seen in the setting of enteritis or if there is a lead point. 2. Filling defects within the superior mesenteric veins (series 5 image 54). Indeterminate whether this represents flow related artifact or DVT. If the patient can have more contrast findings could be further evaluated with a repeat study and a delayed phase to evaluate for complete filling of these veins with contrast. PG Care Time/CCT Total # of Minutes Spent Total Time Spent with Patient: Total time spent is greater than 50% in coordination of care (as documented) at patient's floor/unit and/or counseling patient: [place] [address] IN/OBS CONSULT LVL 2,35M Patient Type New Medical Decision Making Straight Forward Diagnoses Abdominal pain R10.9 Abdominal location: unspecified location (1) Abdominal pain Abdominal location: unspecified location Qualified Code(s): R10.9 - Unspecified abdominal pain
--- NOTE | 2024-11-11 01:48 | CT Scan Report ---
Exam(s): CT ABDOMEN + PELVIS With Contrast IV Amt: 118 ml optiray 320 EXAM: CT Abdomen and Pelvis With Intravenous Contrast CLINICAL HISTORY: Reason for exam: delayed sequence for possible DVT and sup mes vein. TECHNIQUE: Axial computed tomography images of the abdomen and pelvis with intravenous contrast. CTDI is 8.75 mGy and DLP is 456.3 mGy-cm. Automated exposure control was utilized for the study. A dose lowering technique was utilized adhering to the principles of ALARA. CONTRAST: Patient received 118 ml optiray 320 of IV contrast COMPARISON: Prior CT abdomen pelvis dated 11/10/2024 at 8:26 p.m. FINDINGS: See Impression. IMPRESSION: 1. Homogeneous opacification of the superior mesenteric veins without evidence of DVT. 2. Previously seen intussusception in the pelvis no longer visualized and likely transient phenomenon. Electronically signed by: Paola Montenegro M.D. 11/11/24 01:47 AM
[2024-11-11] MEDS: LORazepam 0.5 MG TAB PO PRN (02:07)
[2024-11-11] MEDS: LORazepam 0.5 MG TAB ONE (02:08)
[2024-11-11] MEDS: GADOBUTROL 65ML VIAL IV ONE (03:09)
[2024-11-11] MEDS: SODIUM CHLORIDE 0.9% 1,000 ML IV ONE (03:29)
--- NOTE | 2024-11-11 03:34 | Ultrasound Report ---
EXAM: US venous doppler LE BI CLINICAL HISTORY: leg pain TECHNIQUE: Ultrasound examination of bilateral lower extremity veins was performed in real time and duplex. One or more of the following were performed: spectral analysis, resistive index, waveform analysis, and pulsed Doppler. COMPARISON: None. FINDINGS: Normal phasic, non-pulsatile, and spontaneous flow is noted in bilateral common femoral, superficial femoral, popliteal, anterior and posterior tibial, and peroneal veins. Visualized veins of both lower extremities demonstrate normal compressibility. No sonographic evidence of acute deep vein thrombosis (DVT) is detected in the visualized veins of both lower extremities. Compression and Augmentation: All evaluated veins compress fully with applied transducer pressure. Augmentation of venous flow is noted with distal compression. Additional Findings: No evidence of intraluminal thrombus. IMPRESSION: 1. No sonographic evidence of acute DVT was detected in the bilateral lower extremity veins at the time of examination. Disclaimer: DVT could be missed early in the disease when clot burden is minimal. For patients with moderate and high pretest probability of DVT and negative ultrasound, the [employer] clinical guidelines recommend testing with a D-dimer assay or repeat ultrasound in 5-7 days. If symptoms worsen, the Society of radiologists in ultrasound recommends repeating ultrasound even earlier. Electronically signed by Salbador Alston 11-11-2024 03:34 AM
--- NOTE | 2024-11-11 03:55 | Magnetic Resonance Report ---
EXAM: MR brain wo/w con CLINICAL HISTORY: worsening headache. TECHNIQUE: MRI of the brain was performed with and without intravenous contrast administration (5.5cc gadavist) . Sequences obtained include pre-contrast and post-contrast T1-weighted, T2-weighted, FLAIR (Fluid-Attenuated Inversion Recovery), DWI (Diffusion-Weighted Imaging), and ADC (Apparent Diffusion Coefficient) sequences. COMPARISON: No previous studies are available for comparison. FINDINGS: Brain Parenchyma: No evidence of acute infarction or hemorrhage. Warren-white matter differentiation is preserved. No abnormal signal intensity lesions identified. Post-Contrast Findings: No abnormal enhancement of the brain parenchyma or meninges. Ventricles and Sulci: Ventricular system is within normal limits without evidence of hydrocephalus. Sulci and cisternal spaces are age-appropriate. Brainstem and Cerebellum: Normal appearance of the brainstem and cerebellum without focal lesions or abnormal enhancement. Vessels: Intracranial vessels appear normal without evidence of vascular malformations or aneurysms. Skull and Calvarium: No evidence of skull vault lesions or abnormal marrow signal within the calvarium. IMPRESSION: Normal brain parenchyma and structures. No evidence of acute intracranial pathology or abnormal contrast enhancement. Electronically signed by Salbador Alston 11-11-2024 03:55 AM
[2024-11-11 04:00] VITALS: RESP 18
[2024-11-11 04:34] LABS: Hematocrit (blood only) 43.1 % (42.0-52.0); Hemoglobin 14.6 g/dl (14.0-18.0); Immature Granulocytes # (auto) 0.02 K/uL (0.01-0.20); Immature Granulocytes % (auto) 0.2 %; Mean Corpuscular Hemoglobin 30.1 pg (25.0-34.0); Mean Corpuscular Volume 88.9 fL (80.0-100.0); Platelet Count 169 K/uL (130-400); RDW Standard Deviation 42.2 fL (36.4-46.3); Red Blood Count 4.85 M/uL (4.70-6.10); White Blood Count 9.75 K/ul (4.8-10.8)
[2024-11-11 04:51] LABS: Anion Gap 6.0 (3-11); Blood Urea Nitrogen 16.0 mg/dl (6-23); Calcium 9.5 mg/dl (8.6-10.3); Carbon Dioxide 29.0 mmol/L (21-32); Chloride 104.0 mmol/L (98-107); Creatinine Clr Calc Pharmacy 103.3 ml/min; Glucose 98.0 mg/dl (70-99(Fasting)); Potassium 4.0 mmol/L (3.5-5.1); Sodium 139.0 mmol/L (136-145)
[2024-11-11 05:03] LABS: Partial Thromboplastin Time 26 Seconds (21-31)
[2024-11-11 08:07] LABS: Hemoglobin A1C 5.5 % (4.5-5.6)
[2024-11-11] MEDS: ACETAMINOPHEN 325 MG TAB PO PRN (08:13)
[2024-11-11] MEDS: PROMETHAZINE 6.25 MG/50.25 ML BAG IV PRN (08:37)
--- NOTE | 2024-11-11 10:58 | Electrocardiogram Report ---
Test Reason : Blood Pressure : */* mmHG Vent. Rate : 72 BPM Atrial Rate : 72 BPM P-R Int : 156 ms QRS Dur : 102 ms QT Int : 362 ms P-R-T Axes : 76 71 71 degrees QTcB Int : 396 ms Normal sinus rhythm Moderate voltage criteria for LVH, may be normal variant Borderline ECG No previous ECGs available Confirmed by Martin Steinberg ([id number]) on 11/11/2024 10:57:59 AM Referred By: REFERRED SELF Confirmed By: Martin Steinberg
--- NOTE | 2024-11-11 13:19 | Communication Note ---
Date of Service: November 11, 2024 Patient was seen and examined at bedside. 34 yo M w/ PMH of anxiety disorder, past tobacco abuse, syphilis, ? autoimmune disorder/?Lupus (follows up w/ rheum at [facility]), lyme disease [treated, 2-3 years ago] presents w/ c/o diffuse achiness, achy headache and back pain, generalized weakness improved w/ juice at urgent care/directed to ED for concern of diabetes. He also had achy abdominal pain for last 2 days a/w mild nausea and SOB, no emesis, no cough symptoms, no diarrhea. He reports some mid upper belly discomfort intermittently at baseline. Pt also reports that false positive syphilis test from 1 recent ER visit, likely secondary to autoimmune disease. He is being managed for the following: SOB (shortness of breath): Ruled out DVT/PE comes in w/ co SOB during acute belly pain. likely 2/2 pain. D-dimer and ble venous doppler neg. Pt on RA, hemodynamically stable. Abdominal pain Bowel intussusception Ruled out SMV thrombus: Venogram CT abd pelvis neg for clot. Pt presents w/ abd pain x 2 days, worsening and a/w nausea & sob. Pt denies emesis, diarrhea. Reports intermittent mid upper belly discomfort. Admitting CTAP: small bowel-small bowel intussusception within the pelvis. No bowel obstruction. Gen Sx evaled, no concern for acute bowel, ok /w diet. diet resumed, will monitor for symptoms. Now abd pain in 0/10 per pt. Leucocytosis: likely 2/2 acute abdominal pain/stress. downtrended to normal. no s/s of infection. Monitor off antibiotic. follow tick borne serology. HO lyme dz: per pt treated for lyme about 3 yrs ago. Lyme screen here positive and IgG & IgM are neg. Pt denies any tick bite in the last 1-2 months, no skin rash noted on exam. Likely false positive for lyme screen. Headache: worsening per pt. 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 Pt advised to replenish fluid loss from sweating w/ electrolyte solutions. MRI brain neg for tumor or acute findings. Now headache is better. History false positive syphilis test: Pt states ho syphilis when young but was treated for it per him. No genital lesions or inguinal LAD on exam. Pt reports having false positive syphilis test in other facilities as well, and was told likely 2/2 ? autoimmune disease/lupus. Pt reports no sexual activity beyond single partner. 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 Possible autoimmune disease, patient following with [facility] public address technician (Dr. Min). f/u with [facility] rheum as prior. Steroid-induced hyperglycemia, ro DM, A1c 5.5 Past tobacco abuse DVT prophylaxis. Lovenox subcu Full code Text document was generated using [employer] voice recognition software. It may contain grammatical or spelling errors. Kindly contact undersigned for clarification of any documentation item in question. For detailed info on the patient, refer to today's HnP note. Total time spent: 50 min.
[2024-11-11] MEDS: HEPARIN SOD 5,000 UNIT/0.5 ML VIAL SQ SCH (15:08)
[2024-11-11] MEDS: KETOROLAC TROMETHAMINE 15 MG/ML VIAL IV PRN (16:16)
[2024-11-12 03:03] VITALS: TEMP 97.3
[2024-11-12 06:06] LABS: Hematocrit (blood only) 43.5 % (42.0-52.0); Hemoglobin 15.2 g/dl (14.0-18.0); Mean Corpuscular Hemoglobin 30.6 pg (25.0-34.0); Mean Corpuscular Volume 87.5 fL (80.0-100.0); Platelet Count 180 K/uL (130-400); RDW Standard Deviation 40.7 fL (36.4-46.3); Red Blood Count 4.97 M/uL (4.70-6.10); White Blood Count 7.72 K/ul (4.8-10.8)
[2024-11-12 06:24] LABS: Anion Gap 7.0 (3-11); Blood Urea Nitrogen 15.0 mg/dl (6-23); Calcium 9.3 mg/dl (8.6-10.3); Carbon Dioxide 26.0 mmol/L (21-32); Chloride 105.0 mmol/L (98-107); Creatinine Clr Calc Pharmacy 90.4 ml/min; Glucose 109.0 mg/dl (70-99(Fasting)); Magnesium 2.4 mg/dl (1.7-2.4); Potassium 4.1 mmol/L (3.5-5.1); Sodium 138.0 mmol/L (136-145)
[2024-11-12 08:14] VITALS: BP 104/71; O2SAT 99
--- NOTE | 2024-11-12 11:17 | Psychiatric Consultation ---
Date of Consultation November 12, 2024 Impression / Recommendations Impression Diagnostically consistent with unspecified mood disorder with differential including hypomania secondary to recent steroid use vs hypomania secondary to possible autoimmune disorder (given reportedly mildly elevated JUDY and general malaise) vs bipolar affective disorder current episode of hypomania (history of prior antipsychotics, grandiose delusions, perseveration, mood lability, decreased need for sleep, increased focus on work suggestive of this) vs substance-induced from cannabis (but less likely given no recent changes in strain/frequency/potency) as well as likely generalized anxiety disorder per history and possible narcissistic traits (but difficult to assess in setting of suspected hypomania). Given poor sleep and concern for hypomania recommend use of olanzapine. Discussed this recommendation including potential side effects, risks, benefits and diagnostic uncertainty re: primary psychiatric mood cause vs steroid induced vs autoimmune. Strongly encouraged involvement of his or outpatient providers but he declines at this time. Encouraged outpatient follow-up which he states he plans to do with his psychiatric provider (though will not share details about who this is or allow for coordination of an outpatient appointment). Provided psychoeducation about importance of sleep for mood and general health. He is contemplative about trying to focus on getting more sleep and open to use of olanzapine to see if this helps. He does not meet 302 criteria given that he is able to meet his self- care/safety/medical needs, denies SI, denies HI and has not demonstrated any unsafe behaviors. He is not interested in voluntary inpatient psychiatric treatment. Acute risk of self-harm is low given denial of SI, future-focused. Chronic risk is low given denial of past attempts, has a child, , employed and reports good supports and outpatient providers. Acute risk of harm to others is low given denial of HI and no known episodes of aggression/physical violence. Chronic risk of harm to others is low to moderate given no known history of violence, lack of access to guns but with periods of irritability and past trauma. Discussed that therapy would be best way to help manage past trauma and process this in a supportive environment. Overall, I spent a total of 80 minutes with this case including review of chart records, review of labwork, review of EKG QTc, direct evaluation of the patient at bedside, counseling the patient, discussion of the patient with the Nurse and with the hospitalist provider, discussion with the psychiatric liason during clinical rounds and documentation in the electronic health record. (1) Hypomania: (2) ANNABELLE (generalized anxiety disorder): Plan -Start olanzapine 2.5mg HS po. Reviewed this may need to be titrated, he feels he can do this with his outpatient psychiatric provider -He declined to involve his or outpatient providers -Consider ESR and CRP level to rule out autoimmune pathology -Would attempt to avoid steroids in the future if possible given concern for steroid-induced mood symptoms -Offered additional resources including referral for outpatient psychiatry and/or psychology/therapy which he declines stating that he already has established providers for this Psych History Identifying Data Shai Vasquez is a 34 yo man with a history of anxiety and recent weight loss and fatigue admitted medically for shortness of breath and concern for possible autoimmune disease and bowl intussusception. Psychiatry consulted for recommendations for "anxiety attacks". Chief Complaint "Yes I'm anxious and this place is making it worse". History of Present Illness Shai was admitted medically via the emergency department. While in the ED his approached RN and per battery container tester aluminum on 11/11/2024: "In hallway when approached by patients . puts her hand on my shoulder and states, "Maybe you can get him some Ativan ordered. He's crazy and it's only going to get worse. I'm going out for a cigarette before I fucking kill him." " Shai was then admitted medically and was seen initially by the psychiatric liason RN on the evening on 11/11/2024. Further details of that interaction per her note on 11/11/2024: "Met with pt for initial consult. Upon entering room pt was fully dressed and holding his bag, this RN asked if he was being discharged. 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 Agreed to talk with RN, he appeared restless, tangential, paranoid, and hyperverbal. The conversation was very difficult to follow due to his tangential thoughts, required frequent redirection to return to the topic. 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 He admits to having recent stressors, but said he knows how powerful the mind is but knows his weakness and pain isn't just anxiety. Denies seeing a psychiatrist or therapist outpatient. Has a medical marijuana card and said that is the only helpful thing for his anxiety. Reports not being able to sleep, feels hypervigilant, especially at [facility], afraid someone will come in and start yelling at him. Denies suicidality, denies past suicide attempts. He is not interested in starting any meds for depression or anxiety, feels like his marijuana works well but he can't use it at the hospital." Today was seen by psychiatric liason RN and then I joined discussion mid- morning. Perspective of psych lianasir RN per her note on 11/12/2024: "Met with pt for follow up consult. This nurse was with patient approximately [address] Wang joined this nurse at the patient's bedside to complete the consult. During this consult meeting, patient appeared very labile. Pt originally told this nurse that he was at 20 different hospitals in the last 4 months (the last one being in the [facility]) and the hospital in [place] referred him here to [facility]. Pt stated that he is from the [facility]/[place] area but that he does not attend those hospitals or facilities due to "the nature of his work". 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 When redirected, pt was able to confirm that he had "situational anxiety" of which he was willing to take medication for. Pt stated that he has already had Klonopin, Abilify, and Seroquel prescribed to him in the past and all three were not successful so he quit taking them on his own. 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 Pt stated that he is also closely related to several famous people as well as mayors who run the [facility]. Pt stated that he has pulled several people out of [employer] in his past and "of course I would have anxiety from all that, given the nature of my work." Pt expressed his concern for different members of management here at [facility] and pt's concerns regarding a poor experience patient had in the ER. Pt stated that he works closely with the [employer] and the [employer] and he knows that our Security here is not "real police officers" but rather "simple security". 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 When asked if the patient could elaborate on what [facility] has done that is illegal, pt stated that [facility] and its employees are "corrupt" because the employees "utilize a form of retaliation as a way to protect themselves from the truth, but I (patient still speaking) will be sure to talk to my local friends that are high up to rectify this." Pt also stated, "I'm very smart, highly educated. My friend is a pharmacist." Pt denies feeling paranoid or feeling grandiose at this time. Pt repeatedly denies feeling homicidal or suicidal at this time. Pt stated, "I have way too much going on, I'm very important and my work is very important. I would never harm myself, I'm way too busy." Pt agreeable with Dr. Wang to order Zyprexa at this time. Pt appeared agreeable to 2.5 mg as a dose. Pt refused to sign any ROIs fo pt's or pt's past medical providers. Pt adamantly denies any drug or alcohol use, pt stated that he does have a medical marijuana card and said that is the only helpful thing for his anxiety." While meeting with me Shai sat on his bed and discussed his frustration with what he feels has been poor treatment while in the ED and again after meeting with a nurse in administration earlier this morning. He states concerns that my presence is part of "being in cahoots to make me look mentally unstable". Reassured him that I had not discussed his care with anyone except the psychiatric liason RNs and the hospitalist provider and that the consult for me to see him was placed yesterday afternoon for anxiety and that seeing him this morning was part of the typical process despite his apparent meeting with others this morning. Attempted to redirect him to focus on current symptoms which he was able to do for periods of time before returning back to topics of frustration with his care or with statements about bad things he had read about the hospital online or ways he planned to have others investigate the hospital or ways that he had researched all of us as providers/staff. Reports recent fatigue, weight loss (shows that his belt about 3 inches looser now), and genera l sense that "I know my body is inflamed in my lungs and chest". He saw an outpatient rheumatology who reportedly told him he doesn't see signs of lupus but recommended he see outpatient GI. States he's been in about 20 different ERs over the last 4 months and about "9 of those in the last week". Has been getting dexamethasone injections and recently one or two oral courses of prednisone but he's not sure why he got these noting "see that's the problem, no one in medicine communicates this stuff". He agrees that he deals with anxiety and references his hectic and important work as one big reason for this. He also discusses past traumatic events of finding a friend's relative and loss of his daughter to SIDS. He agrees that past trauma likely impacts him in some lasting ways. He thinks he likely has generalized anxiety and reports typically sleeping 6 hours per night which he views as adequate. Lately though references that he's been working "19 hours a day". Encouraged him to prioritize sleep which agrees might be something that could help his anxiety. He denies any SI nor depression. Discussed my concern for possible kalpana, either steroid-induced or from bipolar disorder or other medical cause. Reviewed some of his statements which seemed grandiose or delusional. He adamantly disagreed with this, stated it felt insulting and slightly offensive, but also stated he understood why I need to ask and verify these things in my line of work. He then pulled out a picture of the recent arrest of Kong Love and identified himself in the photo among other bystanders in [place] and told me he was there because he was working to track him and is involved with the government but cannot tell me more due to nature of [employer]/FBI/law enforcement secrecy. He frequently returned to the topic of frustration with the hospital, stating his plan to involve friends and contacts with government and law enforcement and to have all of us investigated. Review of psychiatric history and ROS notable for denial of prior suicide attempts, denial of any past psychiatric diagnoses for mood disorder/psychosis/depression, denial of any psychiatric family hx, denies access to guns, no prior psychiatric hospitalizations. Does report prior medication trials of: abilify (caused restlessness and panic attacks), Seroquel (caused sedation) and Klonopin (didn't help). he states these were all due to anxiety, he is unable to describe why he was never on SSRIs for anxiety and why antipsychotic medication was used instead and continues to deny any history of bipolar disorder nor kalpana. He denies any hx of problematic substance use. Does use medical cannabis, no recent changes in amount, frequency nor route nor strain. He refuses to allow RACQU[facility] so that his can be contacted for collateral and states "we're not really talking right now" but then tells me this is due to her being busy "making calls to everyone in government because of how I was treated yesterday". States he has an outpatient psychiatrist and therapist but declines to share this information with me and declines to allow us RACQUEL so we can send my note to them. States he will do this himself via medical records. He denies any other questions nor concerns to discuss. Allergies Allergy/AdvReac Type Severity Reaction Status Date / Time aripiprazole [From Abilify] AdvReac Severe Anxiety Verified 11/10/24 22:42 clonazepam [From Klonopin] AdvReac Severe Anxiety Verified 11/10/24 22:42 quetiapine [From Seroquel] AdvReac Severe Anxiety Verified 11/10/24 22:42 Home Medications Medication Instructions Recorded Confirmed Type hydroxyzine HCl 10 mg tablet 10 mg PO Q6 PRN Anxiety 11/10/24 11/10/24 History ibuprofen 200 mg tablet 400 mg PO Q6H PRN Fever Or Pain 11/10/24 11/10/24 History lorazepam 0.5 mg tablet 0.5 mg PO BID PRN anxiety 5 days 11/12/24 Rx #10 tabs olanzapine 2.5 mg tablet 2.5 mg PO HS #30 tabs 11/12/24 Rx pantoprazole 40 mg tablet,delayed 40 mg PO BID #60 tabs 11/12/24 Rx release Patient History Social History Smoking Status: Current every day smoker Tobacco Type: Cigarettes Hx Alcohol Use: Yes Hx Substance Use: No Preferred Language: Uzbek Communication Ability: Effective Technology Consultant Required: No Beliefs That Will Affect Care: None Current Living Situation: Spouse Feels Safe at Home: Yes Assistive Devices: None Physical Exam Psychiatric: Orientation: alert and oriented x 3 Apperance: appropriately dressed and appropriately groomed Eye Contact: good eye contact Motor Behavior: no abnormal motor movements Speech: + pressured speech (but interruptable) Affect: + labile affect and + irritable affect Mood: + anxious mood and + irritable mood Thought Process: + circumstantial thought process and + perseveration Thought Content: + preoccupation and + delusions (grandiose) Suicidal Thoughts: denies suicidal thoughts Homicidal Thoughts: denies homicidal thoughts Hallucinations: no auditory hallucinations and no visual hallucinations Insight: + limited insight Judgment: + limited judgement Vital Signs (Past 24 Hours): Last Vital Signs Temp 36.3 C L 11/12/24 08:13 Pulse 69 11/12/24 09:04 Resp 18 11/12/24 08:13 BP 104/71 11/12/24 08:13 Pulse Ox 99 11/12/24 08:13 O2 Del Method Room Air 11/12/24 08:13 Results & Data (PSY) Diagnostic Findings brain MRI per radiology read with no abnormal findings Medications Administered Acetaminophen (Acetaminophen 325 Mg Tab) 650 mg PO QID PRN PRN Reason: pain/fever Stop: 12/11/24 01:45 Last Admin: 11/11/24 08:13 Dose: 650 mg Documented By: ENOCN Heparin Sodium (Porcine) (Heparin Sod 5,000 Unit/0.5 Ml Vial) 5,000 units SQ Q8 SARAH Stop: 12/11/24 13:59 Last Admin: 11/12/24 06:13 Dose: 5,000 units Documented By: Admin: 11/11/24 21:25 Dose: 5,000 units Documented By: Admin: 11/11/24 15:08 Dose: Not Given Documented By: ROSLYN Promethazine HCl (Phenergan) 6.25 mg in 50.25 mls @ 201 mls/hr IV Q6H PRN PRN Reason: Nausea And Vomiting Stop: 12/11/24 01:46 Last Infusion: 11/12/24 07:14 Dose: Infused Documented By: Admin: 11/12/24 06:48 Dose: 201 mls/hr Documented By: Infusion: 11/11/24 09:14 Dose: Infused Documented By: Admin: 11/11/24 08:37 Dose: 201 mls/hr Documented By: ROSLYN Ketorolac Tromethamine (Ketorolac Tromethamine 15 Mg/Ml Vial) 15 mg IV Q6H PRN PRN Reason: Severe Pain (Scale 7, 8, 9,10) Stop: 11/16/24 15:23 Last Admin: 11/11/24 16:16 Dose: 15 mg Documented By: ROSLYN Lorazepam (Lorazepam 0.5 Mg Tab) 0.5 mg PO TID PRN PRN Reason: Anxiety Stop: 12/11/24 01:44 Last Admin: 11/12/24 09:23 Dose: 0.5 mg Documented By: Admin: 11/12/24 06:38 Dose: 0.5 mg Documented By: Admin: 11/11/24 18:55 Dose: 0.5 mg Documented By: Admin: 11/11/24 15:00 Dose: 0.5 mg Documented By: Admin: 11/11/24 08:41 Dose: 0.5 mg Documented By: Admin: 11/11/24 02:07 Dose: 0.5 mg Documented By: CAMDEN Oxycodone HCl (Oxycodone Hcl Ir 5 Mg Tab (Immediate Release)) 5 mg PO Q4H PRN PRN Reason: Pain Stop: 11/25/24 01:45 Last Admin: 11/12/24 03:09 Dose: 5 mg Documented By: Admin: 11/11/24 22:38 Dose: 5 mg Documented By: JANEL Pantoprazole Sodium (Pantoprazole 40 Mg Tab) 40 mg PO BID SARAH Stop: 12/11/24 14:39 Last Admin: 11/12/24 08:04 Dose: 40 mg Documented By: Admin: 11/11/24 21:24 Dose: Not Given Documented By: Admin: 11/11/24 16:13 Dose: 40 mg Documented By: ROSLYN Coding Level of Care Code 18497 IN/OBS CONSULT LVL 5,80M Diagnoses Hypomania F30.8 ANNABELLE (generalized anxiety disorder) F41.1
--- NOTE | 2024-11-12 12:32 | Discharge Summary ---
Date of Service November 12, 2024 Admission HPI Per Admitting Provider History obtained from patient, family, and records. Medical history significant for anxiety disorder, past tobacco abuse. Patient has not been well the last 4 months. Diffuse achiness. Achy headache and back pain symptoms. Sensation of something pushing down on his shoulders. No facial or focal extremity weakness. Worsening symptoms the last couple of months associated with unquantified weight loss. Patient denies genital/groin lesions. About 20 [place] ER visits for symptoms. Mild improvement with separate steroid courses. Possible autoimmune disease with abnormal JUDY as per initial [facility] last week. History of tick bite years ago status post doxycycline Rx. History false positive syphilis test from 1 recent ER visit as per patient, likely secondary to autoimmune disease. 2 days ago, patient noted belly pain going to the chest associated with SOB. Worsening headache last night. Some nausea, no emesis. No cough symptoms. Good BM. Patient directed to ER for evaluation. IV ceftriaxone administered at the ER. 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, [employer] Admission Exam Per Admitting Provider GENERAL: Comfortable, slightly anxious, underweight, no respiratory distress SKIN: Normal color, warm HEENT: bespectacled, pink palpebral conjunctivae, no ptosis, moist buccal mucosa NECK : Supple, no tenderness CHEST : CTA, no tenderness HEART : RRR, no obvious murmurs ABDOMEN: Some distention, minimal central abdominal tenderness EXTREMITIES : No LE swelling/tenderness, palpable pulses, no other conspicuous deformities noted NEUROLOGIC : Coherent, no facial asymmetry, no other gross focality Principal Diagnosis SOB (shortness of breath) Ruled out DVT/PE Abdominal pain Bowel intussusception Ruled out SMV thrombus Paranoia Discharge Exam GENERAL: Comfortable, slightly anxious, underweight, no respiratory distress SKIN: Normal color, warm HEENT: bespectacled, pink palpebral conjunctivae, no ptosis, moist buccal mucosa NECK : Supple, no tenderness CHEST : CTA, no tenderness HEART : RRR, no obvious murmurs ABDOMEN: Some distention, minimal central abdominal tenderness EXTREMITIES : No LE swelling/tenderness, palpable pulses, no other conspicuous deformities noted NEUROLOGIC : Coherent, no facial asymmetry, no other gross focality Discharge Data Allergies Allergy/AdvReac Type Severity Reaction Status Date / Time aripiprazole [From Abilify] AdvReac Severe Anxiety Verified 11/10/24 22:42 clonazepam [From Klonopin] AdvReac Severe Anxiety Verified 11/10/24 22:42 quetiapine [From Seroquel] AdvReac Severe Anxiety Verified 11/10/24 22:42 Consultations 11/10/24 22:46 ED Decision to Admit Stat 11/10/24 22:48 Consult General Surgery Stat 11/11/24 06:27 Consult Patient Rep [Consult Patient Services] Routine 11/11/24 15:23 Consult Psychiatry Routine Ordered Studies 11/10/24 19:54 CT abd pelvis IV con only Stat CT head/brain wo con Stat CT lumbar spine w con Stat 11/10/24 22:27 CT abdomen pelvis veno w con Stat 11/11/24 01:45 MRI Brain [MR brain wo/w con] Stat US venous doppler LE BI Stat Hospital Course (1) SOB (shortness of breath): Plan 34 yo M w/ PMH of anxiety disorder, past tobacco abuse, syphilis, ? autoimmune disorder/?Lupus (follows up w/ rheum at [facility]), lyme disease [treated, 2-3 years ago] presents w/ c/o diffuse achiness, achy headache and back pain, generalized weakness improved w/ juice at urgent care/directed to ED for concern of diabetes. He also had achy abdominal pain for last 2 days a/w mild nausea and SOB, no emesis, no cough symptoms, no diarrhea. He reports some mid upper belly discomfort intermittently at baseline. Pt also reports that false positive syphilis test from 1 recent ER visit, likely secondary to autoimmune disease. He was managed for the following: SOB (shortness of breath): Ruled out DVT/PE comes in w/ co SOB during acute belly pain. likely 2/2 pain. D-dimer and ble venous doppler neg. Pt on RA, hemodynamically stable. Abdominal pain Bowel intussusception Ruled out SMV thrombus: Venogram CT abd pelvis neg for clot. Pt presents w/ abd pain x 2 days, worsening and a/w nausea & sob. Pt denies emesis, diarrhea. Reports intermittent mid upper belly discomfort. Admitting CTAP: small bowel-small bowel intussusception within the pelvis. No bowel obstruction. Gen Sx evaled, no concern for acute bowel, ok /w diet. Pt tolerating diet well, moved bowel yesterday evening. Now abd pain, now 0/10 per pt. Leucocytosis: likely 2/2 acute abdominal pain/stress. downtrended to normal. no s/s of infection. Monitor off antibiotic. follow tick borne serology. Pt advised to f/u on final results during his PCP visit within a week time of discharge. 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 Will start PPI twice daily, patient will benefit from outpatient GI evaluation. Minimize NSAIDs. Underweight, BMI 16.9 kg/m*m pt advised to incorporate more protein intake and allot time for eating properly during his busy days. 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 Anxiety vs Paranoia: psychiatry evaluated, recommends olanzapine. Pt advised to f/u w/ own psychiatry as OP upon discharge. Pt agreeable. HO lyme dz: per pt treated for lyme about 3 yrs ago. Lyme screen here positive and IgG & IgM are neg. Pt denies any tick bite in the last 1-2 months, no skin rash noted on exam. Likely false positive for lyme screen. Headache: worsening per pt. 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 Pt advised to replenish fluid loss from sweating w/ electrolyte solutions. MRI brain neg for tumor or acute findings. Now headache is better. History false positive syphilis test: Pt states ho syphilis when young but was treated for it per him. No genital lesions or inguinal LAD on exam. Pt reports having false positive syphilis test in other health facilities as well, and was told likely 2/2 ? autoimmune disease/lupus. Pt reports no sexual activity beyond single partner. 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 Possible autoimmune disease, patient following with [facility] (Dr. Min). f/u with OP rheum as prior. Steroid-induced hyperglycemia, ro DM, A1c 5.5 Past tobacco abuse DVT prophylaxis. Lovenox subcu Full code Patient is being discharged home with following instructions at the point of discharge: Follow-up with your primary care physician within a week time and likely you will need labs CBC/CMP/magnesium/phosphorus. You were evaluated for infection while in the hospital. So far all the results has been negative. You will need to follow-up on the final results of the blood culture, RPR, tickborne serologies, ESR/CRP during your PCP visit within a week time upon discharge. Psychiatry evaluated you while in the hospital, recommend that you follow-up with outpatient psychiatry, also you have been started on olanzapine 2.5 Mg in the night. Continue to follow-up closely with rheumatology as an outpatient. Due to your intermittent mid upper belly pain, pantoprazole has been added for concern of acid peptic disease. You will benefit from GI physician evaluation as an outpatient, coordinate with your PCP office to set up the referral. Minimize the use of NSAIDs. Take your medications as prescribed. Please make sure that you are able to get your medications today by calling your pharmacy before you leave the hospital so that your treatment continuity is not broken. Home Health Attestation I certify that this patient is under my care and that I, or a physicians field administrative assistant working with me, had a face to-face encounter that meets the home health [id number] encounter requirements with this patient. The encounter with the patient was in whole, or in part, for the following medical condition, which is the primary reason for home health care (list medical condition): I certify that, based on my findings, the following services are medically necessary home health services: My clinical findings support the need for the above services because: Further, I certify that my clinical findings support that this patient is homebound (i.e. absences from home require considerable and taxing effort and are for medical reasons or rastafarian services or infrequently or of short duration when for other reasons) because: Certification for Home Health Services: Based on the above findings, I certify that this patient is confined to the home and needs intermittent [facility] care, physical therapy and/or speech therapy or continues to need occupational therapy. The patient is under my care, and I have initiated the establishment of the plan of care. This patient will be followed by a physician who will periodically review the plan of care. Total Time Total Time Spent Total Time Spent (In Minutes): 40 Discharge Plan Discharge Items Patient Disposition: Home - Self-Care Reason For Visit: SOB,POSS BOWEL INTUSSUCEPTION,PRIVATE RM PER RE Discharge Diagnosis: SOB (shortness of breath) Ruled out DVT/PE Abdominal pain Bowel intussusception Ruled out SMV thrombus Paranoia Condition on Discharge: Fair Activity: Resume your previous activity Non-emergency contact: Primary Care Provider Call non-emergency contact if: you have any medication questions Follow-up/Referrals: PCP,NO [Primary Care Provider] - Diet: Regular Addtl Attending Provider Instructions: Follow-up with your primary care physician within a week time and likely you will need labs CBC/CMP/magnesium/phosphorus. You were evaluated for infection while in the hospital. So far all the results has been negative. You will need to follow-up on the final results of the blood culture, RPR, tickborne serologies, ESR/CRP during your PCP visit within a week time upon discharge. Psychiatry evaluated you while in the hospital, recommend that you follow-up with outpatient psychiatry, also you have been started on olanzapine 2.5 Mg in the night. Continue to follow-up closely with rheumatology as an outpatient. Due to your intermittent mid upper belly pain, pantoprazole has been added for concern of acid peptic disease. You will benefit from GI physician evaluation as an outpatient, coordinate with your PCP office to set up the referral. Minimize the use of NSAIDs. Take your medications as prescribed. Please make sure that you are able to get your medications today by calling your pharmacy before you leave the hospital so that your treatment continuity is not broken. Pending Studies at Discharge: Yes Stand-Alone Forms: My [employer], Smoking Cessation Medications and DC Order Prescriptions: New olanzapine 2.5 mg Tablet 2.5 mg PO HS Qty: 30 0RF pantoprazole 40 mg Tablet,Delayed Release (Dr/Ec) 40 mg PO BID Qty: 60 0RF Continued hydroxyzine HCl 10 mg tablet 10 mg PO Q6 PRN (Reason: Anxiety) ibuprofen 200 mg Tablet 400 mg PO Q6H PRN (Reason: Fever Or Pain) Discontinued methylprednisolone 4 mg tablets,dose pack 4 mg PO UD Discharge Orders: Discharge Order (Routine); Ordered 11/12/24 Ordered By: Aracelis Aguayo Admission Data Admit Date/Time: 11/11/24 00:55 Attending Provider: Aracelis Aguayo Admit Provider: Daniel Agudelo Primary Care Provider: PCP,NO Other Providers: Daniel Agudelo; Immanuel Montes; Concha Wang; Diomedes Hernandez; [facility] Lim; Dawn Marin; Tomas Smith; Marie Finch; Alber Reyes
[2024-11-12 12:51] VITALS: PULSE 59
[2024-11-12 13:49] LABS: Amphetamines+Metham, Urine Neg (Neg); MDMA (Ecstacy), Urine Neg (Neg); Marijuana, Urine Pos (Neg)
--- NOTE | 2024-11-12 17:58 | Electrocardiogram Report ---
Test Reason : Blood Pressure : */* mmHG Vent. Rate : 62 BPM Atrial Rate : 62 BPM P-R Int : 152 ms QRS Dur : 90 ms QT Int : 374 ms P-R-T Axes : 79 72 71 degrees QTcB Int : 379 ms Normal sinus rhythm with sinus arrhythmia Minimal voltage criteria for LVH, may be normal variant Nonspecific ST abnormality Abnormal ECG When compared with ECG of 10-Nov-2024 19:58, No significant change was found Confirmed by Martin Steinberg ([id number]) on 11/12/2024 5:58:09 PM Referred By: REFERRED SELF Confirmed By: Martin Steinberg
[2024-11-12] MEDS ORDERED: OLANZAPINE 2.5 MG TAB PO SCH (21:00)
[2024-11-15 20:36] LABS: RPR NON-REACTIVE (NON-REACTIVE)
[2024-11-18 09:59] LABS: Marijuana Quant, GCMS Urine 320 ng/mL (<5)
[2024-11-18 23:27] LABS: Q Fever IgG, Phase I NEGATIVE
== END 2024-11-12 14:02 | disposition home or self-care (01) | DRG 389 ==
LOC: ED 19:26 → INTOOBSV 11-11 00:55 → 4W 11-11 00:55